=== PATIENT | female | born 1955 | race Caucasian/White ===

== ENCOUNTER → 2016-12-03 | Outpatient (CLI) | payer MEDICAID ==
[~2016-12-03] MED LIST: AMLO10TA2 PO; AMOX-367 PO; BISA10SU54 PR; DOCU-30 PO; ENAL10TA PO; FAMO-79 PO; LACT20SO13 PO/NG; LEVO750T6 PO; LORA-445 PO; MAGN400T26 PO; METF10002 PO; MORP15TA39 PO; OMEP20CA9 PO; OMNIPAQUE 350 MG/ML, 100ML BOTTLE ONE; ONDA4TAB7 PO; OXYC15TA PO; OXYC15TA60 PO; OXYC5TAB3 PO; POLY17PO5 PO; SIME80TA16 PO; VANC125C11 PO
== END | disposition home or self-care (01) ==
LOC: CFH 09:42
PROVIDERS: ATTEND Internal Medicine Hematology & Oncology
DX: C25.9 Malignant neoplasm of pancreas, unspecified (principal); J98.11 Atelectasis; R59.0 Localized enlarged lymph nodes; Z90.81 Acquired absence of spleen
CPT/HCPCS: 71260; 74177; Q9967

== ENCOUNTER → 2017-06-12 | Outpatient (CLI) | payer MEDICAID ==
[~2017-06-12] MED LIST changes: +DOCU-131 PO; -DOCU-30 PO; +MORP-52 PO; -MORP15TA39 PO
== END | disposition home or self-care (01) ==
LOC: CFH 08:50
PROVIDERS: ATTEND Internal Medicine Hematology & Oncology
DX: K74.60 Unspecified cirrhosis of liver (principal); R59.9 Enlarged lymph nodes, unspecified; K57.30 Diverticulosis of large intestine without perforation or abscess without bleeding; K76.0 Fatty (change of) liver, not elsewhere classified; Z90.710 Acquired absence of both cervix and uterus; Z90.49 Acquired absence of other specified parts of digestive tract; Z85.07 Personal history of malignant neoplasm of pancreas; Z90.411 Acquired partial absence of pancreas; Z90.81 Acquired absence of spleen
CPT/HCPCS: 71260; 74177; 82565; Q9967

== ENCOUNTER 2017-10-23 13:31 | Inpatient (IN) | payer MEDICAID ==
[~2017-10-23] VITALS: Ht 154.9 cm; Wt 70.6 kg
[~2017-10-23 13:31] MED LIST changes: +ASPI-515 PO; +ENOX40SY4 SQ; +METF500T4 PO; +OCTREOTIDE 500 MCG in SODIUM CHLORIDE 0.9% 249 ML IV SCH; -OMNIPAQUE 350 MG/ML, 100ML BOTTLE ONE; +SENN1TAB67 PO
[2017-10-23] MEDS ORDERED: SODIUM CHLORIDE 0.9% 1,000ML IVBOLUS ONE (14:00)
[2017-10-23] MEDS ORDERED: PLEASE ENTER HEIGHT AND WEIGHT MC SCH (14:00)
[2017-10-23 14:17] LABS: MEAN CORPUSCULAR HEMOGLOBIN 27.5 pg (27.0-34.8); MEAN CORPUSCULAR HGB CONC 32.4 g/dL (32.4-35.8); MEAN CORPUSCULAR VOLUME 84.9 fL (80-100); MEAN PLATELET VOLUME 8.8 fL (7.4-10.4); PLATELET COUNT 275 x10^3/uL (130-400); RED BLOOD COUNT 2.64 x10^6/uL (3.82-5.3); RED CELL DISTRIBUTION WIDTH 19.6 % (9.6-15.2)
[2017-10-23 14:18] LABS: INTERNATIONAL NORMALIZED RATIO 1.14 (0.93-1.1); PROTHROMBIN TIME 11.7 Seconds (9.6-11.5)
[2017-10-23] MEDS ORDERED: METOCLOPRAMIDE 5 MG/ML, 2ML ONE (14:18)
[2017-10-23 14:20] LABS: HEMOGRAM NOTE RECHECKED
[2017-10-23 14:23] LABS: ALBUMIN 2.7 g/dL (3.4-5.0); ANION GAP 13 mmol/L (5-15); CALCIUM 8.3 mg/dL (8.5-10.1); CHLORIDE 104 mmol/L (98-107)
[2017-10-23 14:27] LABS: ALANINE AMINOTRANSFERASE 15 U/L (12-78); ALKALINE PHOSPHATASE 78 U/L (45-117); BILIRUBIN,TOTAL 0.8 mg/dL (0.2-1.0); CREATININE 0.91 mg/dL (0.55-1.02); TOTAL PROTEIN 6.4 g/dL (6.4-8.2)
[2017-10-23] MEDS ORDERED: METOCLOPRAMIDE 5 MG/ML, 2ML IVPush ONE (14:30)
[2017-10-23 14:44] LABS: MD YES
[2017-10-23 14:46] LABS: BAND#(MANUAL) 1.16 x10^3/uL; BANDS%(MANUAL) 7 % (0-7); LYMPH#(MANUAL) 3.65 x10^3/uL (1-3.4); LYMPHS% (MANUAL) 22 % (22-44); MONOS% (MANUAL) 6 % (2-9); SEG#(MANUAL) 10.79 x10^3/uL (1.8-6.8); SEGS% (MANUAL) 65 % (42-75)
[2017-10-23 14:47] LABS: ANISOCYTOSIS 1+; POLYCHROMASIA 1+; TARGET CELLS 1+
[2017-10-23 14:48] LABS: <PLATELET ESTIMATE> ADEQUATE; <PLT MORPHOLOGY> NORMAL PLT MORPH
[2017-10-23] MEDS ORDERED: OCTREOTIDE 500 MCG in SODIUM CHLORIDE 0.9% 249 ML IV PRN (15:00)
[2017-10-23] MEDS ORDERED: PANTOPRAZOLE 80 MG in SODIUM CHLORIDE 0.9% 50 ML IVPB ONE (15:00)
[2017-10-23] MEDS ORDERED: PANTOPRAZOLE 80 MG in SODIUM CHLORIDE 0.9% 100 ML IV SCH (15:00)
[2017-10-23 15:35] VITALS: BP 145/72
[2017-10-23] MEDS ORDERED: MIDAZOLAM 1 MG/ML, 2ML ONE (15:39)
[2017-10-23] MEDS ORDERED: FENTANYL PF 100 MCG/2ML ONE (15:40)
[2017-10-23] MEDS ORDERED: PROPOFOL 10 MG/ML, 20ML ONE (15:57)
[2017-10-23] MEDS ORDERED: ONDANSETRON 2MG/ML, 2ML IVPush PRN (17:00)
[2017-10-23] MEDS ORDERED: hydrALAzine 20 MG/ML, 1ML IVPush PRN (17:00)
[2017-10-23 17:36] LABS: FREE T4 (FREE THYROXINE) 1.11 ng/dL (0.76-1.46); THYROID STIMULATING HORMONE 3.31 mIU/L (0.358-3.740)
[2017-10-23 17:43] LABS: HEMOGLOBIN A1C 7.7 % (4.2-6.3)
[2017-10-23 19:55] VITALS: BP 129/79
[2017-10-23] MEDS: SODIUM CHLORIDE 0.9% 1,000 ML IV SCH (22:00)
[2017-10-23] MEDS: INSULIN LISPRO 100 UNITS/ML, PEN SQ-INSULIN SCH (22:00)
[2017-10-24 01:15] VITALS: BP 131/71
[2017-10-24] MEDS: MORPHINE SULFATE 4 MG/ML, 1ML IVPush PRN ×2 (02:20→10:45)
[2017-10-24] MEDS: OCTREOTIDE 500 MCG in SODIUM CHLORIDE 0.9% 249 ML IV SCH ×2 (03:08→14:54)
[2017-10-24] MEDS: PANTOPRAZOLE 80 MG in SODIUM CHLORIDE 0.9% 100 ML IV SCH ×2 (03:09→15:09)
[2017-10-24 06:15] LABS: MEAN CORPUSCULAR HEMOGLOBIN 28.6 pg (27.0-34.8); MEAN CORPUSCULAR HGB CONC 32.7 g/dL (32.4-35.8); MEAN CORPUSCULAR VOLUME 87.5 fL (80-100); MEAN PLATELET VOLUME 8.2 fL (7.4-10.4); PLATELET COUNT 241 x10^3/uL (130-400); RED BLOOD COUNT 2.94 x10^6/uL (3.82-5.3); RED CELL DISTRIBUTION WIDTH 17.4 % (9.6-15.2)
[2017-10-24] MEDS: SODIUM CHLORIDE 0.9% 1,000 ML IV SCH (06:20)
[2017-10-24 06:27] LABS: ALANINE AMINOTRANSFERASE 17 U/L (12-78); ALBUMIN 2.6 g/dL (3.4-5.0); ANION GAP 9 mmol/L (5-15); CALCIUM 7.6 mg/dL (8.5-10.1); CHLORIDE 111 mmol/L (98-107); CHOLESTEROL, TOTAL 108 mg/dL (140-239)
[2017-10-24 06:29] LABS: ALKALINE PHOSPHATASE 61 U/L (45-117); BILIRUBIN,TOTAL 0.8 mg/dL (0.2-1.0); HDL CHOLESTEROL (DIRECT) 32 mg/dL (40-60); TOTAL PROTEIN 6.1 g/dL (6.4-8.2); TRIGLYCERIDES 105 mg/dL (50-200); VLDL CHOLESTEROL 21 mg/dL (0-25)
[2017-10-24 06:30] LABS: CHOL/HDL RATIO 3.4; HDL CHOL % 30 % (28-40); LDL CHOLESTEROL,CALCULATED 55 mg/dL (54-169); LDL/HDL RATIO 1.7 (0.5-3.0)
[2017-10-24 06:44] LABS: MICROSCOPIC INDICATED
[2017-10-24 06:52] LABS: CULTURE INDICATED? NO
[2017-10-24 06:55] LABS: MD YES
[2017-10-24 07:17] LABS: BASOPHILS # (AUTO) 0.26 x10^3/uL (0-0.1); BASOPHILS % (AUTO) 1 % (0-1); EOSINOPHILS # (AUTO) 0.11 x10^3/uL (0-0.4); EOSINOPHILS % (AUTO) 1 % (1-7); LYMPHOCYTES # (AUTO) 7.14 x10^3/uL (1-3.4); LYMPHOCYTES % (AUTO) 38 % (22-44); MONOCYTES # (AUTO) 1.04 x10^3/uL (0.2-0.8); MONOCYTES % (AUTO) 6 % (2-9); NEUTROPHILS # (AUTO) 10.36 x10^3/uL (1.8-6.8); NEUTROPHILS % (AUTO) 55 % (42-75)
[2017-10-24] MEDS: INSULIN LISPRO 100 UNITS/ML, PEN SQ-INSULIN SCH ×4 (08:18→20:09)
[2017-10-24 08:22] VITALS: BP 147/86
[2017-10-24] MEDS: OXYcodone IR 5MG TABLET PO PRN ×2 (11:25→20:17)
[2017-10-24 12:26] VITALS: BP 131/79
[2017-10-24] MEDS ORDERED: PANTOPRAZOLE 80 MG in SODIUM CHLORIDE 0.9% 100 ML IV SCH (15:00)
[2017-10-24 18:44] LABS: ANION GAP 8 mmol/L (5-15); CHLORIDE 109 mmol/L (98-107); CREATININE 0.58 mg/dL (0.55-1.02)
[2017-10-24] MEDS: CEFTRIAXONE PMX 1GM/50ML 50 ML IV SCH (18:54)
[2017-10-24 19:14] LABS: BASOPHILS # (AUTO) 0.15 x10^3/uL (0-0.1); BASOPHILS % (AUTO) 1 % (0-1); EOSINOPHILS # (AUTO) 0.11 x10^3/uL (0-0.4); EOSINOPHILS % (AUTO) 1 % (1-7); LYMPHOCYTES # (AUTO) 4.62 x10^3/uL (1-3.4); LYMPHOCYTES % (AUTO) 28 % (22-44); MD SCAN; MEAN CORPUSCULAR HEMOGLOBIN 28.9 pg (27.0-34.8); MEAN CORPUSCULAR HGB CONC 32.9 g/dL (32.4-35.8); MEAN CORPUSCULAR VOLUME 87.7 fL (80-100); MEAN PLATELET VOLUME 8.2 fL (7.4-10.4); MONOCYTES # (AUTO) 1.21 x10^3/uL (0.2-0.8); MONOCYTES % (AUTO) 8 % (2-9); NEUTROPHILS # (AUTO) 10.17 x10^3/uL (1.8-6.8); NEUTROPHILS % (AUTO) 63 % (42-75); PLATELET COUNT 242 x10^3/uL (130-400); RED BLOOD COUNT 2.95 x10^6/uL (3.82-5.3)
[2017-10-24 20:27] VITALS: BP 138/74
[2017-10-25 01:45] VITALS: BP 119/75
[2017-10-25] MEDS: PANTOPRAZOLE 80 MG in SODIUM CHLORIDE 0.9% 100 ML IV SCH (02:53)
[2017-10-25] MEDS: OCTREOTIDE 500 MCG in SODIUM CHLORIDE 0.9% 249 ML IV SCH ×2 (04:41→16:58)
[2017-10-25 08:15] VITALS: BP 122/67
[2017-10-25] MEDS: OXYcodone IR 5MG TABLET PO PRN ×2 (08:55→20:31)
[2017-10-25] MEDS: INSULIN LISPRO 100 UNITS/ML, PEN SQ-INSULIN SCH ×4 (09:59→20:29)
[2017-10-25 11:40] LABS: MEAN CORPUSCULAR HGB CONC 32.2 g/dL (32.4-35.8); MEAN CORPUSCULAR VOLUME 86.9 fL (80-100); MEAN PLATELET VOLUME 8.1 fL (7.4-10.4); PLATELET COUNT 257 x10^3/uL (130-400); RED BLOOD COUNT 2.85 x10^6/uL (3.82-5.3); RED CELL DISTRIBUTION WIDTH 17.7 % (9.6-15.2)
[2017-10-25 12:15] LABS: MD YES
[2017-10-25 12:16] LABS: BAND#(MANUAL) 0.31 x10^3/uL; BANDS%(MANUAL) 2 % (0-7); EOS#(MANUAL) 0.16 x10^3/uL (0.0-0.4); EOS% (MANUAL) 1 % (1-7); LYMPH#(MANUAL) 7.02 x10^3/uL (1-3.4); LYMPHS% (MANUAL) 45 % (22-44); MONOS#(MANUAL) 0.62 x10^3/uL (0.3-2.7); MONOS% (MANUAL) 4 % (2-9); REACTIVE LYMPHS # (MANUAL) 0.31 x10^3/uL (0-0); REACTIVE LYMPHS % (MANUAL) 2 % (0-0); SEG#(MANUAL) 7.18 x10^3/uL (1.8-6.8); SEGS% (MANUAL) 46 % (42-75)
[2017-10-25 12:20] LABS: ANISOCYTOSIS 1+; POLYCHROMASIA 1+
[2017-10-25 12:21] LABS: <PLATELET ESTIMATE> ADEQUATE; <PLT MORPHOLOGY> NORMAL PLT MORPH; TARGET CELLS 1+
[2017-10-25 12:51] VITALS: BP 128/69
[2017-10-25 19:26] VITALS: BP 157/89
[2017-10-25] MEDS: CEFTRIAXONE PMX 1GM/50ML 50 ML IV SCH (20:29)
[2017-10-25] MEDS ORDERED: ACETAMINOPHEN 325 MG TABLET PO ONE (22:30)
[2017-10-26 01:35] VITALS: BP 146/59
[2017-10-26] MEDS: OCTREOTIDE 500 MCG in SODIUM CHLORIDE 0.9% 249 ML IV SCH ×2 (04:33→16:03)
[2017-10-26 05:04] LABS: BASOPHILS # (AUTO) 0.06 x10^3/uL (0-0.1); BASOPHILS % (AUTO) 1 % (0-1); EOSINOPHILS # (AUTO) 0.15 x10^3/uL (0-0.4); EOSINOPHILS % (AUTO) 1 % (1-7); LYMPHOCYTES % (AUTO) 37 % (22-44); MD NO; MEAN CORPUSCULAR HEMOGLOBIN 28.1 pg (27.0-34.8); MEAN CORPUSCULAR VOLUME 87.7 fL (80-100); MEAN PLATELET VOLUME 8.3 fL (7.4-10.4); MONOCYTES # (AUTO) 1.36 x10^3/uL (0.2-0.8); MONOCYTES % (AUTO) 10 % (2-9); NEUTROPHILS # (AUTO) 6.64 x10^3/uL (1.8-6.8); NEUTROPHILS % (AUTO) 51 % (42-75); PLATELET COUNT 264 x10^3/uL (130-400); RED BLOOD COUNT 2.79 x10^6/uL (3.82-5.3); RED CELL DISTRIBUTION WIDTH 18.1 % (9.6-15.2)
[2017-10-26 05:15] LABS: ANION GAP 8 mmol/L (5-15); CALCIUM 7.9 mg/dL (8.5-10.1); CHLORIDE 108 mmol/L (98-107); CREATININE 0.57 mg/dL (0.55-1.02)
[2017-10-26 07:02] VITALS: BP 132/67
[2017-10-26] MEDS: INSULIN LISPRO 100 UNITS/ML, PEN SQ-INSULIN SCH ×4 (08:23→21:49)
[2017-10-26] MEDS: OMEPRAZOLE 20 MG CAPSULE.DR PO SCH (08:28)
[2017-10-26 12:08] VITALS: BP 139/51
[2017-10-26 20:05] VITALS: BP 134/76
[2017-10-26] MEDS: CEFTRIAXONE PMX 1GM/50ML 50 ML IV SCH (21:43)
[2017-10-26] MEDS: OXYcodone IR 5MG TABLET PO PRN (21:49)
[2017-10-27 02:26] VITALS: BP 138/68
[2017-10-27] MEDS: OCTREOTIDE 500 MCG in SODIUM CHLORIDE 0.9% 249 ML IV SCH (03:49)
[2017-10-27 05:56] LABS: CHLORIDE 106 mmol/L (98-107)
[2017-10-27 05:59] LABS: ANION GAP 10 mmol/L (5-15); CALCIUM 8.1 mg/dL (8.5-10.1); CREATININE 0.57 mg/dL (0.55-1.02)
[2017-10-27 06:00] LABS: MEAN CORPUSCULAR HEMOGLOBIN 28.7 pg (27.0-34.8); MEAN CORPUSCULAR HGB CONC 32.4 g/dL (32.4-35.8); MEAN CORPUSCULAR VOLUME 88.4 fL (80-100); MEAN PLATELET VOLUME 8.7 fL (7.4-10.4); PLATELET COUNT 285 x10^3/uL (130-400); RED BLOOD COUNT 2.88 x10^6/uL (3.82-5.3); RED CELL DISTRIBUTION WIDTH 18.3 % (9.6-15.2)
[2017-10-27 06:29] LABS: BASOPHILS # (AUTO) 0.15 x10^3/uL (0-0.1); BASOPHILS % (AUTO) 1 % (0-1); EOSINOPHILS # (AUTO) 0.11 x10^3/uL (0-0.4); EOSINOPHILS % (AUTO) 1 % (1-7); LYMPHOCYTES # (AUTO) 5.36 x10^3/uL (1-3.4); LYMPHOCYTES % (AUTO) 43 % (22-44); MD SCAN; MONOCYTES % (AUTO) 10 % (2-9); NEUTROPHILS # (AUTO) 5.58 x10^3/uL (1.8-6.8); NEUTROPHILS % (AUTO) 45 % (42-75)
[2017-10-27] MEDS: OMEPRAZOLE 20 MG CAPSULE.DR PO SCH (07:46)
[2017-10-27] MEDS: INSULIN LISPRO 100 UNITS/ML, PEN SQ-INSULIN SCH (07:53)
[2017-10-27 07:54] VITALS: BP 154/74
[2017-10-28 16:41] LABS: ANTI-NUCLEAR ANTIBODY PATTERN CYTOPLASMIC
== END 2017-10-27 12:30 | disposition home or self-care (01) | DRG 368 ==
LOC: ED 14:46 → EDIP 14:47 → ED 15:24 → 4EST 18:07
PROVIDERS: ADMIT Hospitalist; ATTEND Hospitalist
PROC: 06L38CZ Occlusion of Esophageal Vein with Extraluminal Device, Via Natural or Artificial Opening Endoscopic (ICD-10-PCS; 2017-10-23)
PROC: 30233N1 Transfusion of Nonautologous Red Blood Cells into Peripheral Vein, Percutaneous Approach (ICD-10-PCS; principal; 2017-10-23 16:00)
DX: I85.01 Esophageal varices with bleeding (principal); R57.1 Hypovolemic shock; C25.9 Malignant neoplasm of pancreas, unspecified; E44.0 Moderate protein-calorie malnutrition; D72.829 Elevated white blood cell count, unspecified; E11.9 Type 2 diabetes mellitus without complications; D62 Acute posthemorrhagic anemia; K74.60 Unspecified cirrhosis of liver; F12.90 Cannabis use, unspecified, uncomplicated; I10 Essential (primary) hypertension; I86.4 Gastric varices; K21.9 Gastro-esophageal reflux disease without esophagitis; Z79.82 Long term (current) use of aspirin; Z86.14 Personal history of Methicillin resistant Staphylococcus aureus infection; Z87.891 Personal history of nicotine dependence; Z90.710 Acquired absence of both cervix and uterus; Z90.411 Acquired partial absence of pancreas; Z68.29 Body mass index [BMI] 29.0-29.9, adult
CPT/HCPCS: 36415; 36430; 76700; 80048; 80053; 80061; 80307; 81001; 82962; 83036; 83516; 83735; 84439; 84443; 85014; 85018; 85025; 85610; 85730; 86038; 86803; 86850; 86900; 86923; 87340; 93005; 96365; 96375; J0696; J2354; C9113; J1815; J2765; J7030; J7050; P9016

== ENCOUNTER → 2019-05-07 | Outpatient (CLI) | payer MEDICARE, MEDICAID ==
[~2019-05-07] MED LIST changes: -AMLO10TA2 PO; +AMLO10TA8 PO; +METF500T17 PO; -METF500T4 PO; -OCTREOTIDE 500 MCG in SODIUM CHLORIDE 0.9% 249 ML IV SCH
[2019-05-07 12:59] LABS: INTERNATIONAL NORMALIZED RATIO 1.09 (0.93-1.1); PROTHROMBIN TIME 11.4 Seconds (9.6-11.5)
[2019-05-07 13:19] LABS: % IRON SATURATION 12 % (20-55); IRON LEVEL 43 mcg/dL (50-170); TOTAL IRON BINDING CAPACITY 359 mcg/dL (250-450)
== END | disposition home or self-care (01) ==
LOC: CFH 09:02
PROVIDERS: ATTEND Internal Medicine Gastroenterology
DX: C25.9 Malignant neoplasm of pancreas, unspecified (principal); K74.69 Other cirrhosis of liver; N20.0 Calculus of kidney; Z88.2 Allergy status to sulfonamides; I85.00 Esophageal varices without bleeding; K59.00 Constipation, unspecified
CPT/HCPCS: 36415; 74018; 76705; 82105; 82140; 83540; 83550; 85610